=== PATIENT | female | born 1970 | race Caucasian/White ===

== ENCOUNTER → 2018-03-20 | Outpatient (CLI) | payer OTHER | END | disposition home or self-care (01) | LOC: RAD 11:00 | DX: Z13.820 Encounter for screening for osteoporosis (principal); D35.2 Benign neoplasm of pituitary gland; N20.0 Calculus of kidney; N95.9 Unspecified menopausal and perimenopausal disorder; Z86.39 Personal history of other endocrine, nutritional and metabolic disease ==